=== PATIENT | female | born 1995 | race African-American/Black ===

== ENCOUNTER 2017-06-11 16:39 | Inpatient (IN) ==
[2017-06-11] MEDS ORDERED: ONDANSETRON 4 MG/2 ML VIAL IV PRN (17:08)
[2017-06-11] MEDS ORDERED: BUTORPHANOL 2 MG/ML VIAL IV PRN (17:08)
[2017-06-11] MEDS ORDERED: DINOPROSTONE 10 MG VAG.INSERT VAG ONE (17:28)
[2017-06-11 17:36] LABS: Basophils % 0.1 % (0.0-0.8); Eosinophils % 0.4 % (0.00-10.9); Hematocrit 38.2 VOL% (35.7-47.0); Hemoglobin 12.7 GM/DL (12.0-16.0); Immature Granulocytes % 0.8 %; Immature Granulocytes Absolute 0.06 #; Lymphocytes # 0.8 10*3/uL (1.4-4.0); Lymphocytes % 10.8 % (21.3-54.2); Mean Corpuscular HGB Conc 33.2 GM/DL (32-36); Mean Corpuscular Hemoglobin 28 PG (27-34); Mean Corpuscular Volume 82.9 FL (87-102); Mean Platelet Volume 11.3 FL (9.6-12.0); Monocytes # 0.6 10*3/uL (0.11-0.8); Monocytes % 8.2 % (1.7-12.7); Neutrophils # 6.2 10*3/uL (1.4-7.4); Neutrophils % 79.7 % (38.7-73.9); Platelet Count 224 T/CUMM (130-400); Red Blood Count 4.61 MC/CUMM (3.8-5.5); Red Cell Distribution Width 15.1 % (9.3-17.3); White Blood Count 7.8 T/CUMM (4-12)
[2017-06-11] MEDS: LACTATED RINGERS 1,000 ML IV SCH ×2 (17:50→21:17)
[2017-06-11 18:13] LABS: Albumin 3.3 G/DL (3.4-5.0); Bilirubin,Total 0.5 MG/DL (0.2-1.0); Calcium 9.2 MG/DL (8.5-10.1); Potassium 4.2 MMOL/L (3.5-5.1); Total Protein 7.6 G/DL (6.4-8.3)
[2017-06-12] MEDS: LACTATED RINGERS 1,000 ML IV SCH (00:18)
[2017-06-12] MEDS ORDERED: diphenhydrAMINE 50 MG/1 ML VIAL IV PRN (00:34)
[2017-06-12] MEDS ORDERED: PROMETHAZINE 25 MG/1 ML VIAL IM ONE (00:34)
[2017-06-12] MEDS ORDERED: ePHEDrine 50 MG/ML AMP IV PRN (00:34)
[2017-06-12] MEDS ORDERED: hydrOXYzine HCL 25 MG/1 ML VIAL IM PRN (00:34)
[2017-06-12] MEDS ORDERED: CITRIC ACID/SODIUM CITRATE 30 ML UDCUP PO ONE (00:34)
[2017-06-12] MEDS ORDERED: TERBUTALINE 1 MG/1 ML VIAL SUBCUT ONE (00:39)
[2017-06-12] MEDS ORDERED: OXYTOCIN/LR 20 UNIT/1,000 ML BAG IV ONE (00:39)
[2017-06-12] MEDS ORDERED: OXYTOCIN/LR 20 UNIT/1,000 ML BAG IV SCH (01:00)
[2017-06-12] MEDS ORDERED: fentaNYL 2 MCG/ROPIV 0.2% EPID 150 ML EPIDURAL SCH (01:00)
[2017-06-12] MEDS ORDERED: FAMOTIDINE 20 MG/2 ML VIAL IV ONE (01:07)
[2017-06-12 02:43] LABS: Apearance,Urine CLEAR (Clear); Bilirubin,Urine Negative (Negative); Blood, Urine Small mg/dL (Negative); Glucose,Urine (UA) Negative (Negative); Hyaline Casts,Urine 1 /LPF (0-3); Ketones,Urine 5 mg/dL (Negative); Mucus,Urine Occasional /LPF (Occasional); Nitrite,Urine Negative (Negative); Protein,Urine Negative; RBC,Urine 3 /HPF (0-4); Squamous Epithelial Cell,Urine Occasional /HPF (0-10); Urine Color Yellow (Yellow); Urine Specific Gravity 1.011 (1.001-1.035); WBC,Urine 3 /HPF (0-6)
[2017-06-12] MEDS ORDERED: miSOPROStol 200 MCG TABLET ONE (04:11)
[2017-06-12] MEDS ORDERED: TRANEXAMIC ACID 1,000 MG/10 ML VIAL IV ONE (04:11)
[2017-06-12] MEDS ORDERED: METHYLERGONOVINE 0.2 MG/1 ML AMP ONE (04:12)
[2017-06-12] MEDS ORDERED: CARBOPROST TROMETHAMINE 250 MCG/ML AMP IM ONE (04:12)
[2017-06-12] MEDS ORDERED: LIDOCAINE 1% 50 ML VIAL ONE (05:24)
[2017-06-12 05:31] LABS: Cord Arterial Blood HCO3 16.7 MMOL/L
[2017-06-12 05:37] LABS: Cord Venous Blood HCO3 18.8 MMOL/L; Cord Venous Blood PCO2 55.3 MMHG; Cord Venous Blood PO2 23.7
[2017-06-12] MEDS ORDERED: BENZOCAINE 20%/MENTHOL 0.5% SPRAY 56 GM CAN TOP PRN (06:23)
[2017-06-12] MEDS ORDERED: BISACODYL 10 MG SUPP RECTAL PRN (06:23)
[2017-06-12] MEDS ORDERED: ACETAMINOPHEN 325 MG TABLET PO PRN (06:23)
[2017-06-12] MEDS ORDERED: MEASLES/MUMPS/RUBELLA VACCINE 0.5 ML VIAL SUBCUT ONE (06:23)
[2017-06-12] MEDS ORDERED: LANOLIN 50% CREAM 0.3 OZ TUBE TOP PRN (06:23)
[2017-06-12] MEDS ORDERED: RHO(D) IMMUNE GLOBULIN 300 MCG SYRINGE IM ONE (06:23)
[2017-06-12] MEDS ORDERED: DIPH/TET/ACEL PERT BOOSTER VACCINE 0.5 ML VIAL IM ONE (06:23)
[2017-06-12] MEDS ORDERED: WITCH HAZEL PADS 100/JAR TOP PRN (06:23)
[2017-06-12] MEDS ORDERED: oxyCODONE/ACETAMINOPHEN 5-325 MG TABLET PO PRN ×2 (06:23→12:12)
[2017-06-12] MEDS ORDERED: HYDROCORTISONE 2.5% RECTAL CREAM 30 GM TUBE TOP PRN (06:23)
[2017-06-12] MEDS ORDERED: oxyCODONE/ACETAMINOPHEN 5-325 MG TABLET PO SCH (06:30)
[2017-06-12] MEDS: IBUPROFEN 800 MG TABLET PO SCH ×3 (06:32→22:07)
[2017-06-12] MEDS: DOCUSATE SODIUM 100 MG CAPSULE PO SCH ×2 (12:12→21:21)
[2017-06-13 03:37] LABS: Basophils % 0.1 % (0.0-0.8); Eosinophils % 0.3 % (0.00-10.9); Hematocrit 30.4 VOL% (35.7-47.0); Hemoglobin 9.9 GM/DL (12.0-16.0); Immature Granulocytes Absolute 0.13 #; Lymphocytes # 1.7 10*3/uL (1.4-4.0); Lymphocytes % 13.1 % (21.3-54.2); Mean Corpuscular HGB Conc 32.6 GM/DL (32-36); Mean Corpuscular Hemoglobin 27 PG (27-34); Mean Platelet Volume 11.2 FL (9.6-12.0); Monocytes # 1.6 10*3/uL (0.11-0.8); Monocytes % 12.5 % (1.7-12.7); Neutrophils # 9.4 10*3/uL (1.4-7.4); Platelet Count 187 T/CUMM (130-400); Red Blood Count 3.62 MC/CUMM (3.8-5.5); Red Cell Distribution Width 15.2 % (9.3-17.3); White Blood Count 12.9 T/CUMM (4-12)
[2017-06-13] MEDS: IBUPROFEN 800 MG TABLET PO SCH ×2 (05:57→16:02)
[2017-06-13] MEDS: DOCUSATE SODIUM 100 MG CAPSULE PO SCH ×2 (09:06→21:13)
[2017-06-14] MEDS: IBUPROFEN 800 MG TABLET PO SCH ×3 (01:00→09:48)
[2017-06-14 07:14] VITALS: BP 112/78
[2017-06-14] MEDS: DOCUSATE SODIUM 100 MG CAPSULE PO SCH (09:45)
== END 2017-06-14 13:20 | disposition home or self-care (01) | DRG 560 ==
LOC: N.LDOUT 16:39 → N.LD 16:45 → N.OB 06-12 08:32
PROVIDERS: ADMIT Obstetrics & Gynecology; ATTEND Obstetrics & Gynecology